=== PATIENT | male | born 1950 | race Caucasian/White ===

== ENCOUNTER 2016-05-30 01:42 | Inpatient (IN) | payer OTHER ==
--- NOTE | ~2016-05-30 | CR72 ---
[facility] A Service of [facility] RADIOLOGY TEXT RESULTS PATIENT: LUIS ARMANDO TELLEZ LOCATION: [facility] 304-01 : 51 UNIT #: [id number] AGE: [address]: Lincoln Blanchard MD SEX: M ORDER DR: [id number] [address] [address] [id number] I MR#: [id number] Acc #: [id number] NAME: LUIS ARMANDO TELLEZ : 1950 SEX: M STUDY DATE/TIME: 05/30/2016 1:59 UNIT: SEDOF ROOM: [facility] STUDY DESCRIPTION: CR Chest Single View Portable Attending Physician: Anne Cade M.D. Ordering Physician: Dakota German M.D. Primary Care Physician: Eddie Sanders M.D. MEDICAL IMAGING REPORT This report is preliminary unless electronic signature is present. EXAM Frontal chest 05/30/2016 INDICATION Shortness of air, left rib and chest pain, left back pain 1 hour prior to arrival tonight. Prostate cancer, hypertension. TECHNIQUE Frontal chest was performed. COMPARISON 09/24/2010. FINDINGS The heart is enlarged. Vascularity is within normal limits. There is patchy atelectasis or infiltrate in the midlung zone on the right. Left lung base not well penetrated or assessed. No effusion or pneumothorax. Please see subsequent CT chest PE protocol same date at 0241 hours for further details. IMPRESSION 1. Cardiomegaly without distinct volume overload. 2. Patchy atelectasis or infiltrate in the midlung zone on the right. 3. Under penetration of the left lung base. 4. Please see the separately dictated subsequent CT chest PE protocol same date for further details. Dictated by... Aly Barboza M.D. THIS IS AN ELECTRONICALLY VERIFIED REPORT [facility] A Service of [facility] RADIOLOGY TEXT RESULTS PATIENT: LUIS ARMANDO TELLEZ LOCATION: [facility] 304-01 : 51 UNIT #: [id number] AGE: [address]: Lincoln Blanchard MD SEX: M ORDER DR: Aly Barboza M.D. at 05/30/2016 10:02 PM EDER/go TD: 05/30/2016 07:10 JOB #: [id number] MEDICAL IMAGING REPORT Page 1 of 1
--- NOTE | ~2016-05-30 | CO ---
Unit #: [id number] #: [id number] Patient: LUIS ARMANDO ORTA [id number] [address] [address] [id number] I MR#: [id number] NAME: LUIS ARMANDO ORTA ROOM: 304 Age: 66 Sex: M Admission Date: 05/30/2016 : 1950 Attending Physician: Song Blanchard M.D. Primary Care Physician: Eddie Sanders M.D. Requesting Physician: Song Blanchard M.D. Consultation Date: 06/01/2016 CONSULTATION REPORT REASON FOR CONSULTATION Pancreatic mass. HISTORY Mr. Orta is a 66-year-old white gentleman with morbid obesity who presented with increasing shortness of breath and community-acquired pneumonia, currently placed on antibiotics. During his workup for the pulmonary congestion, the patient was found to have an incidental mass in the pancreatic head and uncinate process which is about 3 cm in size. It is noteworthy that he had similar mass noted on the CT scan done at least a year ago. The patient denies any history of epigastric pain. There is no history of postprandial dyspepsia. His initial presentation with increasing shortness of air with fatigue, chest pain, hemoptysis. PAST MEDICAL HISTORY Significant for: 1. History of congestive heart failure. 2. Hypertension. 3. Thumb injury. 4. Hyperlipidemia. 5. Obstructive sleep apnea. SURGICAL HISTORY Previous surgeries include: 1. Prostatectomy for prostate cancer. 2. Knee cyst removal. 3. Inguinal herniorrhaphy. 4. Abdominal hernia repair. MEDICATIONS Medications at home included: 1. Hydrochlorothiazide. 2. Tramadol. 3. Prilosec. 4. Lexapro. 5. Metoprolol. 6. Amlodipine. 7. Lipitor. 8. Mucinex. ALLERGIES There are no known drug allergies. SOCIAL HISTORY Unit #: [id number] #: [id number] Patient: LUIS ARMANDO ORTA Ex-smoker. Does not drink alcohol. FAMILY HISTORY None of colon or pancreatic cancer or liver disease. REVIEW OF SYSTEMS A detailed review of organ systems does not reveal any recent weight loss. No history of fevers, chills or rigors. There is a history of cough, expectoration and possible hemoptysis. No history of dysuria, hematuria or pyuria. No history of focal seizures or extremity weakness. No history of skin rash, aphthous ulcers in the mouth or reactive arthritis. The rest of the review of organ system is unremarkable. PHYSICAL EXAMINATION GENERAL APPEARANCE: He is alert, oriented and appears comfortable. VITAL SIGNS: His vital signs are stable with a temperature of 97.7, pulse of 78/minute and regular, respiratory rate is 18, blood pressure 129/74. He weighs 433 pounds. Baseline weight in the past has varied between 250 to 300 pounds. He has mild pallor. No icterus, lymphadenopathy or peripheral edema. CARDIOVASCULAR EXAMINATION: Reveals normal heart sounds. No murmurs. LUNGS: Auscultation of the lungs reveals bilateral diminished symmetric air entry. ABDOMEN: Morbidly obese and obesity precludes any meaningful palpation. There is no area of localized tenderness, rigidity, rebound or guarding. Liver and spleen are not palpable. Bowel sounds normal. DIAGNOSTIC STUDIES LABORATORY: Lab evaluation reveals a white count of 20,000, hemoglobin of 10.3. Normochromic/normocytic red cell indices and platelet count of 217. Serum chemistry shows a BUN and creatinine of 24 and 1.2. Sodium 130, potassium 4.3, albumin 3.2. LFTs normal. IMAGING: CT scan shows a low attenuation mass in the head and uncinate process of the pancreas. Compared to the CT scan about five years ago, it has gone from 1.7 to 3 cm, according to the radiologist's report. CLINICAL IMPRESSION The patient is an extremely high surgical risk case and the imaging is done without contrast. The patient, therefore, needs a pancreatic protocol MRI to clearly delineate the mass in the pancreas. In the meantime, will obtain a CA19-9 in the a.m. labs. No specific intervention needed at the present time. The patient was, therefore, reassured. FINAL DIAGNOSIS 1. Incidental finding of a mass in the pancreatic head. 2. Left lower lobe pneumonia, most likely community-acquired. 3. Remaining problems as listed under the past medical history. Thank you for asking me to see this pleasant gentleman. I appreciate the consult. Unit #: [id number] #: [id number] Patient: LUIS ARMANDO ORTA Dictated by.Erma Carson TD: 06/03/2016 09:43 JOB #: [id number] CC: Anne Cade M.D. CONSULTATION REPORT Page 1 of 1 X Manuel Asencio MD CONSULTATION REPORT
--- NOTE | ~2016-05-30 | HP ---
Unit #: [id number] #: [id number] Patient: LUIS ARMANDO TELLEZ [id number] [address] [address] [id number] I MR#: [id number] NAME: LUIS ARMANDO TELLEZ ROOM: 304 Age: 66 Sex: M Admission Date: 05/30/2016 : 1950 Attending Physician: Song Blanchard M.D. Primary Care Physician: Eddie Sanders M.D. HISTORY AND PHYSICAL HISTORY OF PRESENT ILLNESS This is a 66-year-old gentleman with a past medical history significant for prostatectomy, history of ventral hernia repair, who presented with worsening shortness of breath for approximately one day. The patient was having fatigue, hemoptysis, chest pain. He came to the emergency room where he was found to have elevated lactic acid. Therefore, he was admitted to the hospital with progressive dyspnea. The patient denied fever, denied ankle swelling, denied leg/calf pain, he does have cough productive mostly of clear but occasionally reddish sputum. The patient is having no significant fever or chills. Chest CT shows infiltrate in the left lower lung base. We are admitting for treatment of community-acquired pneumonia and hemoptysis. Patient is also complaining of pain in the left side of the back to the chest. PAST MEDICAL HISTORY Significant for: 1. Congestive heart failure. 2. Hypertension. 3. Cancer. 4. Inguinal hernia. 5. Thumb injury. 6. High cholesterol. 7. Obstructive sleep apnea. PAST SURGICAL HISTORY Significant for: 1. Prostatectomy. 2. Knee cyst removal. 3. Inguinal hernia repair. 4. Abdominal hernia repair. 5. Left thumb injury reconstruction. HOME MEDICATIONS Include: 1. Zestril. 2. Amlodipine besylate. 3. Metoprolol succinate. 4. Metolazone. 5. Lexapro. 6. Prilosec. 7. Tramadol. 8. Hydrochlorothiazide. Unit #: [id number] #: [id number] Patient: LUIS ARMANDO TELLEZ 9. Lipitor. 10. Mucinex. ALLERGIES No known drug allergies. SOCIAL HISTORY The patient is a remote smoker. No occupational exposure. No physical exposure. FAMILY HISTORY Noncontributory. PHYSICAL EXAMINATION VITAL SIGNS: T. current 97.5, pulse 81, respiratory rate 18, blood pressure 115/64, saturating 91% on room air. NECK: Greater than 18 inches in circumference. LUNGS: Decreased breath sounds bilaterally. HEART: Regular rate, no gallop. ABDOMEN: Soft, nontender, nondistended. Obese. EXTREMITIES: Edema trace to +1. DIAGNOSTIC STUDIES LABORATORY: Lactic acid 2.6, increased to 3.1. White count 24.7, hemoglobin 10, platelets 199. INR 1.1. Procalcitonin 14.3. Lactic acid 1.8. Comprehensive metabolic profile significant for BUN 24, creatinine 1.2. Blood gas 7.35, 39 and 70. Lactic acid max 3.8. ASSESSMENT AND PLAN What looks like community-acquired pneumonia. Patient is on community-acquired pneumonia , and he is also on nebulizers. Steroids will not get today. Continuing Zithromax for probable CAP. Attempts to re-send sputum culture. Thank you very much for this consult and allowing us to participate in the care of this patient. Please page me for any questions. Dictated by Erma Reynoso/derik TD: 05/31/2016 20:43 JOB #: [id number] Unit #: [id number] #: [id number] Patient: LUIS ARMANDO TELLEZ HISTORY AND PHYSICAL Page 1 of 1 X Lincoln Blanchard MD X HISTORY AND PHYSICAL
--- NOTE | ~2016-05-30 | CT16 ---
[facility] A Service of [facility] RADIOLOGY TEXT RESULTS PATIENT: LUIS ARMANDO TELLEZ LOCATION: A 304-01 : 51 UNIT #: [id number] AGE: [address]: Lincoln Blanchard MD SEX: M ORDER DR: [id number] [address] [address] [id number] I MR#: [id number] #: [id number] NAME: LUIS ARMANDO TELLEZ : 1950 SEX: M STUDY DATE/TIME: 05/30/2016 2:41 UNIT: SEDOF ROOM: [id number] STUDY DESCRIPTION: CT Angio Chest for PE Attending Physician: Anne Cade M.D. Ordering Physician: Dakota German M.D. Primary Care Physician: Eddie Sanders M.D. MEDICAL IMAGING REPORT This report is preliminary unless electronic signature is present. EXAM Chest CT PE protocol with contrast INDICATIONS Short of air. Left-sided chest and rib and upper back pain for an hour prior to arrival tonight, elevated D-dimer. TECHNIQUE Contrast enhanced CT scan chest PE protocol was performed with 3-D reformats. No relevant comparisons. This CT examination was performed with one or more of the following radiation dose reduction techniques: automatic exposure control, adjustment of mA and/or kV according to patient size, and iterative reconstruction. FINDINGS CT chest: IV bolus suboptimal, the majority of the bolus is in the systemic arterial system. Exam also is degraded by body habitus and beam hardening artifact. Aorta demonstrates no aneurysm or dissection. There is no evidence of acute pulmonary embolus in the main, left or right central pulmonary arteries. Distal to that level the pulmonary arteries are not well opacified or assessed and the presence or absence of small filling defects cannot be ascertained. Included thyroid unremarkable. Probable reactive mediastinal nodes. No axillary adenopathy. The heart is borderline in size. Included upper abdomen demonstrates prominence of the spleen. 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 Gallbladder demonstrates uncomplicated cholelithiasis. Probable mild fatty infiltration of the STS. [facility] A Service of [facility] & [facility] RADIOLOGY TEXT RESULTS PATIENT: LUIS ARMANDO TELLEZ LOCATION: [facility] 304-01 : [birth year] UNIT #: [id number] AGE: [address]: Lincoln Blanchard MD SEX: M ORDER DR: liver. Included kidneys are unremarkable. There is a 3 cm low-attenuation mass in the head/uncinate process of the pancreas. This is larger than on 11/20/[address] when measured about 1.7 cm. Suggest reassessment with pancreatic protocol MRI or CT on a non emergent basis. There is diverticulosis of the colon. There is dense pneumonia in the posteromedial left lower lobe. No significant effusion. Atelectasis or pneumonia in the superior segment right lower lobe as well. Scattered areas of pleural thickening are present. No pneumothorax. No suspicious bone lesion. There are degenerative changes in the thoracolumbar spine. IMPRESSION 1. Exam degraded by suboptimal bolus timing body habitus and beam hardening artifact. There is no aortic aneurysm or dissection. No evidence of acute pulmonary embolus in the left or right central pulmonary arteries. Distal to that level the pulmonary arteries are not well visualized or assessed and the presence or absence of pulmonary emboli cannot be ascertained. 2. Pneumonia in the left lower lobe. Atelectasis or pneumonia in the superior segment right lower lobe. No associated effusion. 3. Included upper abdomen demonstrates an indeterminate low-attenuation mass in the head/uncinate process of the pancreas measuring 3 cm, larger than on the prior study when it measured 1.7 cm. It appeared to most likely represent a benign lesion on the [address] but reassessment with pancreatic protocol MRI or CT with and without contrast on a non emergent basis is recommended for reassessment. 4. Fatty infiltration of the liver. 5. Uncomplicated cholelithiasis. 1. 1. Dictated by... Aly Braboza M.D. THIS IS AN ELECTRONICALLY VERIFIED REPORT Aly Barboza M.D. at 05/30/2016 10:00 PM Herson TD: 05/30/2016 06:21 JOB #: [id number] MEDICAL IMAGING REPORT Page 1 of 1
--- NOTE | ~2016-05-30 | DS ---
Unit #: [id number] #: [id number] Patient: LUIS ARMANDO TELLEZ [id number] [address] [address] [id number] I MR#: [id number] NAME: LUIS ARMANDO TELLEZ ROOM: 304 Age: 66 Sex: M Admission Date: 05/30/2016 : 1950 Discharge Date: 06/06/2016 Attending Physician: Song Blanchard M.D. Primary Care Physician: Eddie Sanders M.D. DISCHARGE SUMMARY 1. Chronic obstructive pulmonary disease exacerbation. 2. Pneumonia. 3. Pancreatic cyst. 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 HISTORY OF PRESENT ILLNESS A 66-year-old gentleman with past medical history significant for prostatectomy, history of ventral hernia repair who presented with worsening shortness of breath, approximately one day. The patient is having fatigue, hemoptysis, chest pain. The patient presented to have elevated lactic acid, admitted to the hospital with progressive dyspnea. The patient denied fever, denied ankle swelling, denied leg/calf pain. He says he had a cough productive mostly of clear but occasionally reddish-brown. The patient was having no significant fever or chills. CT chest shows infiltrate left lower lung base; admitting patient for treatment of community-acquired pneumonia, hemoptysis and COPD exacerbation. The patient is having some chest pain. HOSPITAL COURSE On the floor, the patient was placed on azithromycin and Rocephin as well as Solu-Medrol. The patient's sugars were a little bit elevated; however, this improved as the prednisone dose was decreased. He was able to ambulate around his room. Physical Therapy was called and, on hospital day five, the patient was deemed ready to be discharged and sent to home. DISCHARGE MEDICATIONS 1. Symbicort 160/4.5 mcg two puffs b.i.d. 2. Combivent Respimat one puff four times a day and as needed every four hours. 3. Prednisone four tabs p.o. x2 days, three tabs p.o. x2 days, two tabs p.o. x2 days and one tab p.o. x2 days. 4. Omnicef 300 mg p.o. b.i.d. for 2 days. 5. Celexa 10 mg daily. 6. Amlodipine 5 mg daily. 7. Metoprolol 15 mg daily. 8. Metolazone 50 mg q.a.m. 9. Latanoprost 2.5 mL in affected eye at bedtime. 10. Atorvastatin 40 mg daily. 11. Zestril 40 mg in the morning. 12. Tramadol 50 mg p.o. t.i.d. as needed. 13. Omeprazole 40 mg daily. Unit #: [id number] #: [id number] Patient: LUIS ARMANDO TELLEZ FOLLOWUP 1. Follow up with Yessy Bautista A.P.R.N., in approximately two weeks. 2. Follow up with Dr. Asencio in his office within the next month. The patient would probably benefit from a MRI of the pancreas. However, he is unable to use MRI here at [facility]. Therefore, he will be referred out by Dr. Asencio from his office. Dictated by... Song Blanchard M.D. Nilam TD: 06/06/2016 07:52 JOB #: [id number] DISCHARGE SUMMARY Page 1 of 1 X Lincoln Blanchard MD X DISCHARGE SUMMARY
--- NOTE | ~2016-05-30 | CR72 ---
[facility] A Service of [facility] & [facility] RADIOLOGY TEXT RESULTS PATIENT: LUIS ARMANDO TELLEZ LOCATION: [facility] 304-01 : [birth year] UNIT #: [id number] AGE: [address]: Lincoln Blanchard MD SEX: M ORDER DR: [id number] [facility] [address] [facility]. [place], [place] [address] [id number] I MR#: [id number] Acc #: [id number] NAME: LUIS ARMANDO TELLEZ : 1950 SEX: M STUDY DATE/TIME: 06/01/2016 5:18 UNIT: [address] ROOM: [facility] STUDY DESCRIPTION: CR Chest Single View Portable Attending Physician: Song Blanchard M.D. Ordering Physician: Song Blanchard M.D. Primary Care Physician: Eddie Sanders M.D. MEDICAL IMAGING REPORT This report is preliminary unless electronic signature is present EXAM Portable chest, 06/01/2016 HISTORY Shortness of air for 2 days. COMPARISON Chest, 05/30/2016 FINDINGS Frontal chest demonstrates mild bibasilar atelectasis. No pneumothorax. Heart size and mediastinum are stable. IMPRESSION 1. Stable cardiomegaly. 2. Mild bibasilar atelectasis. Dictated by... Sam Vasquez M.D. THIS IS AN ELECTRONICALLY VERIFIED REPORT Sam Vasquez M.D. at 06/01/2016 11:30 PM Miguelito TD: 06/01/2016 16:03 JOB #: [id number] MEDICAL IMAGING REPORT Page 1 of 1 COPY
--- NOTE | ~2016-05-30 | BMI ---
[facility] Nutrition Therapy DATE: 05/30/16 Patient: LUIS ARMANDO TELLEZ Physician: DIVYA Address: [address] [facility] Room/Bed: [address] [place] [address], Zip: [place] [address] Admit Date: 05/30/16 Date of : [birth year] Height: 5 11 Weight: 412 187 HIGH BMI NOTE: DX: 66 Y.O. MALE ADMITTED FOR PNA ANTHROPOMETRICS: 5'11", WT: 412# (187 KG), BMI: 57.5 DIET: REGULAR INTERVENTION: 1. REGULAR DIET RECOMMENDATIONS: 1. RECOMMEND TO CHANGE CURRENT DIET ORDER TO CC+HH TO PROMOTE GRADUAL WEIGHT LOSS TOWARDS HEALTHY BMI (19.0-25.0) OR +/-10%IBW RD WILL F/U PER PROTOCOL Respectfully, LIZY TOLENTINO MS, RD, LD [facility] Nutrition[facility] cc: client file
[~2016-05-30 01:42] MED LIST: AMLODIPINE BESYL5 MG PO; CELEXA20 MG PO; FLEXERIL PO; LEXAPRO PO; LIPITOR PO; LIPITOR40 MG PO; LISINOPRIL PO; LISINOPRIL10 MG PO; METOLAZONE5 MG PO; METOPROLOL SUCC50 MG PO; NORVASC PO; PRILOSEC40 MG PO; SIMVASTATIN80 MG PO; TRAMADOL HCL50 M1 PO; WALGREENS PHARMACY; ZOCOR PO
[2016-05-30 01:53] LABS: BASOPHIL# 0.2 X10e3 (0-0.3); BASOPHIL% 1.4 % (0-2.5); DIFF IND NO; EOSINOPHIL# 0.1 X10e3 (0-0.7); EOSINOPHIL% 0.8 % (0.0-7.0); HEMATOCRIT 38.3 % (38.0-50.0); HEMOGLOBIN 12.4 gm/dL (13.0-16.0); LYMPHOCYTE# 1.5 X10e3 (1.0-3.5); LYMPHOCYTE% 11.2 % (17.0-45.0); MEAN CELL VOLUME 79.6 FL (83-96); MEAN CORPUSCULAR HEMOGLOBIN 25.8 PG (28-34); MEAN CORPUSCULAR HGB CONC 32.4 g/dL (30-36); MEAN PLATELET VOLUME 7.8 FL (6.5-11.5); MONOCYTE# 0.3 X10e3 (0-1.0); MONOCYTE% 2.6 % (3.0-12.0); PLATELET COUNT 236 X10e3 (140-420); RED BLOOD COUNT 4.81 X10e (3.90-5.60); RED CELL DISTRIBUTION WIDTH 16.8 % (11.0-15.5); WHITE BLOOD COUNT 13.1 X10e3 (4.0-10.5)
[2016-05-30 01:55] LABS: INR 1.1; PROTHROMBIN TIME (PATIENT) 12.4 SECONDS (9.5-12.4)
[2016-05-30 02:00] LABS: POC - CKMB 1.6 ng/mL (0.0-7.9); POC - TROPONIN <0.05 ng/mL (<=0.05)
[2016-05-30 02:02] LABS: PARTIAL THROMBOPLASTIN TIME 25.7 SECONDS (25.6-38.1)
[2016-05-30 02:07] LABS: ALBUMIN SERUM 4.2 g/dL (3.5-5.0); BILIRUBIN, DIRECT 0.1 mg/dL (0.0-0.2); BILIRUBIN,INDIRECT 0.4 mg/dL (0.0-0.9); BILIRUBIN,TOTAL 0.5 mg/dL (0.2-2.0); BUN/CREATININE RATIO 21.66; CALCIUM SERUM 9.2 mg/dL (8.4-10.2); CREATININE SERUM 1.2 mg/dL (0.6-1.4); GLOM FILT RATE Estimated 63.1 mL/min (>60); POTASSIUM 4.7 mmol/L (3.5-5.1); PROTEIN TOTAL SERUM 7.4 g/dL (6.0-8.3)
[2016-05-30 02:16] LABS: INFLUENZA A NEG (NEG); INFLUENZA B NEG (NEG)
[2016-05-30] MEDS ORDERED: LATANOPROST2.5 ML OU (08:14)
[2016-05-30] MEDS ORDERED: SYMBICORT INH (08:14)
[2016-05-30 10:51] LABS: %MB 1.8 % (0.0-4.0); MB 1.7 ng/ml
[2016-05-31 04:24] LABS: ARTERIAL BLD GAS O2 SATURATION 92.4 % (90.0-100.0); ARTERIAL BLOOD GAS CARBOXY HB 0.6 %sat (0.0-9.0); ARTERIAL BLOOD GAS HCO3 21.8 mmol/L; ARTERIAL BLOOD GAS MET HB 1.1 %sat (0.0-2.0); ARTERIAL BLOOD GAS PCO2 39.4 mmHg (35.0-45.0); ARTERIAL BLOOD GAS pH 7.351 (7.350-7.450)
[2016-05-31 04:27] LABS: ARTERIAL BLOOD GAS ALLEN TEST Y; ARTERIAL BLOOD GAS ART SITE RIGHT RADIAL; ARTERIAL BLOOD GAS DELIVERY NASAL CANNULA; ARTERIAL BLOOD GAS PO2 70.5 mmHg (80.0-100); ARTERIAL DRAW? YES
[2016-05-31 06:12] LABS: ALBUMIN SERUM 3.2 g/dL (3.5-5.0); BILIRUBIN,TOTAL 0.5 mg/dL (0.2-2.0); CALCIUM SERUM 7.6 mg/dL (8.4-10.2); CREATININE SERUM 1.2 mg/dL (0.6-1.4); GLOM FILT RATE Estimated 63.1 mL/min (>60); POTASSIUM 4.3 mmol/L (3.5-5.1); PROTEIN TOTAL SERUM 6.6 g/dL (6.0-8.3)
[2016-05-31 06:25] LABS: BASOPHIL% 0.1 % (0-2.5); HEMATOCRIT 31.4 % (38.0-50.0); LYMPHOCYTE# 0.7 X10e3 (1.0-3.5); LYMPHOCYTE% 2.9 % (17.0-45.0); MEAN CELL VOLUME 79.8 FL (83-96); MEAN CORPUSCULAR HEMOGLOBIN 25.3 PG (28-34); MEAN CORPUSCULAR HGB CONC 31.7 g/dL (30-36); MEAN PLATELET VOLUME 8.3 FL (6.5-11.5); MONOCYTE# 0.4 X10e3 (0-1.0); MONOCYTE% 1.7 % (3.0-12.0); NEUTROPHIL# 23.6 X10e3 (1.5-7.1); NEUTROPHIL% 95.3 % (40-75); PLATELET COUNT 199 X10e3 (140-420); RED BLOOD COUNT 3.94 X10e (3.90-5.60)
[2016-05-31 06:26] LABS: DIFF IND YES; WHITE BLOOD COUNT 24.7 X10e3 (4.0-10.5)
[2016-05-31 07:20] LABS: INR 1.1; PROTHROMBIN TIME (PATIENT) 11.5 SECONDS (9.6-11.5)
[2016-05-31 07:32] LABS: ANISOCYTOSIS SL
[2016-05-31 07:33] LABS: HYPOCHROMIA SL; MICROCYTOSIS SL; PLATELET ESTIMATE NORMAL (NORMAL)
[2016-05-31 07:34] LABS: OVALOCYTES PRESENT
[2016-06-01 05:25] LABS: HEMOGLOBIN 10.3 gm/dL (13.0-16.0); MEAN CELL VOLUME 80.3 FL (83-96); MEAN CORPUSCULAR HEMOGLOBIN 25.1 PG (28-34); MEAN CORPUSCULAR HGB CONC 31.2 g/dL (30-36); MEAN PLATELET VOLUME 8.7 FL (6.5-11.5); RED BLOOD COUNT 4.1 X10e (3.90-5.60); RED CELL DISTRIBUTION WIDTH 16.7 % (11.0-15.5); WHITE BLOOD COUNT 20.8 X10e3 (4.0-10.5)
[2016-06-01 06:04] LABS: BUN/CREATININE RATIO 23.63; CALCIUM SERUM 7.9 mg/dL (8.4-10.2); CREATININE SERUM 1.1 mg/dL (0.6-1.4); GLOM FILT RATE Estimated 70.1 mL/min (>60); POTASSIUM 4.9 mmol/L (3.5-5.1)
[2016-06-02 07:09] LABS: BASOPHIL# 0.1 X10e3 (0-0.3); BASOPHIL% 0.3 % (0-2.5); DIFF IND NO; HEMATOCRIT 33.7 % (38.0-50.0); HEMOGLOBIN 10.5 gm/dL (13.0-16.0); LYMPHOCYTE# 0.9 X10e3 (1.0-3.5); LYMPHOCYTE% 5.4 % (17.0-45.0); MEAN CELL VOLUME 80.9 FL (83-96); MEAN CORPUSCULAR HEMOGLOBIN 25.2 PG (28-34); MEAN CORPUSCULAR HGB CONC 31.2 g/dL (30-36); MEAN PLATELET VOLUME 8.8 FL (6.5-11.5); MONOCYTE# 0.5 X10e3 (0-1.0); NEUTROPHIL# 14.6 X10e3 (1.5-7.1); NEUTROPHIL% 91.3 % (40-75); PLATELET COUNT 223 X10e3 (140-420); RED BLOOD COUNT 4.17 X10e (3.90-5.60); RED CELL DISTRIBUTION WIDTH 16.8 % (11.0-15.5)
[2016-06-02 07:11] LABS: CALCIUM SERUM 7.9 mg/dL (8.4-10.2); GLOM FILT RATE Estimated 78.6 mL/min (>60); POTASSIUM 4.1 mmol/L (3.5-5.1)
[2016-06-03 06:52] LABS: BASOPHIL% 0.1 % (0-2.5); EOSINOPHIL% 0.1 % (0.0-7.0); HEMATOCRIT 33.6 % (38.0-50.0); HEMOGLOBIN 10.6 gm/dL (13.0-16.0); LYMPHOCYTE# 1.7 X10e3 (1.0-3.5); LYMPHOCYTE% 11.2 % (17.0-45.0); MEAN CELL VOLUME 79.7 FL (83-96); MEAN CORPUSCULAR HEMOGLOBIN 25.2 PG (28-34); MEAN CORPUSCULAR HGB CONC 31.7 g/dL (30-36); MEAN PLATELET VOLUME 7.9 FL (6.5-11.5); MONOCYTE# 0.8 X10e3 (0-1.0); MONOCYTE% 5.1 % (3.0-12.0); NEUTROPHIL# 12.9 X10e3 (1.5-7.1); NEUTROPHIL% 83.5 % (40-75); PLATELET COUNT 219 X10e3 (140-420); RED BLOOD COUNT 4.21 X10e (3.90-5.60); RED CELL DISTRIBUTION WIDTH 16.9 % (11.0-15.5); WHITE BLOOD COUNT 15.4 X10e3 (4.0-10.5)
[2016-06-03 06:53] LABS: DIFF IND YES
[2016-06-03 10:25] LABS: PLATELET ESTIMATE NORMAL (NORMAL); RBC NORMAL YES
[2016-06-06] MEDS ORDERED: OMNICEF300 MG PO (02:12)
[2016-06-06] MEDS ORDERED: ALB/IPRATROPIUM/1 E1 INH (07:25)
[2016-06-06] MEDS ORDERED: PREDNISONE PO (07:25)
== END 2016-06-06 09:15 | disposition home or self-care (01) | DRG 189 ==
LOC: SED 01:42 → SEDOF 04:34 → C3A PCU 07:59
PROVIDERS: Emergency Medicine; Internal Medicine; Internal Medicine Pulmonary Disease
DX: J96.01 Acute respiratory failure with hypoxia (principal); J18.9 Pneumonia, unspecified organism; I11.0 Hypertensive heart disease with heart failure; K86.2 Cyst of pancreas; I50.9 Heart failure, unspecified; J44.1 Chronic obstructive pulmonary disease with (acute) exacerbation; J44.0 Chronic obstructive pulmonary disease with (acute) lower respiratory infection; R04.2 Hemoptysis; Z68.43 Body mass index [BMI] 50.0-59.9, adult; G47.33 Obstructive sleep apnea (adult) (pediatric); E78.00 Pure hypercholesterolemia, unspecified; Z87.891 Personal history of nicotine dependence; E66.01 Morbid (severe) obesity due to excess calories; E78.5 Hyperlipidemia, unspecified; Z85.46 Personal history of malignant neoplasm of prostate; Z90.79 Acquired absence of other genital organ(s)
CPT/HCPCS: 36415; 36600; 71010; 71275; 80048; 80053; 80076; 82308; 82550; 82553; 82803; 83605; 83874; 83880; 84484; 85025; 85027; 85379; 85384; 85610; 85730; 86301; 87040; 87070; 87205; 87804; 93005; 94640; 94664; 94760; 96365; 96372; 96375; 96376; 99285; J0360; J0456; J0696; J1650; J1956; J2270; J2405; J2920; J2930; Q9967